=== PATIENT | female | born 1990 | race Two or more races ===

== ENCOUNTER 2017-03-06 00:51 | Emergency (ER) | payer OTHER ==
[~2017-03-06] VITALS: Ht 162.6 cm; Wt 80.0 kg
[2017-03-06] MEDS ORDERED: METAL LOCK LOOP XX ONE (01:09)
[2017-03-06 01:27] VITALS: BP 148/71
[2017-03-06] MEDS ORDERED: TOPI200T4 PO ×2 (01:41→15:31)
[2017-03-06] MEDS ORDERED: WELLTAB38 PO (01:41)
[2017-03-06] MEDS ORDERED: AMBI5TAB PO (01:41)
[2017-03-06] MEDS ORDERED: NAPR500T PO (18:28)
[2017-03-06] MEDS ORDERED: ZOFR4TAB3 PO (18:53)
== END 2017-03-06 03:12 | disposition left against medical advice (07) ==
LOC: M ED 01:47
DX: R10.9 Unspecified abdominal pain (principal); Z53.21 Procedure and treatment not carried out due to patient leaving prior to being seen by health care provider

== ENCOUNTER 2017-03-06 15:17 | Emergency (ER) | payer OTHER ==
[~2017-03-06] VITALS: Ht 162.6 cm; Wt 79.8 kg
[~2017-03-06 15:17] MED LIST: AMBI5TAB PO; TOPI200T7 PO; WELLTAB38 PO
[2017-03-06] MEDS ORDERED: TOPI200T7 PO (15:31)
[2017-03-06] MEDS ORDERED: KETOROLAC 30 MG/ML VIAL (J1885) IV ONE (16:45)
[2017-03-06 17:09] LABS: BASO % 0.2 % (0.0-1.0); EOS # 0.2 K/mm3 (0.0-0.50); EOS % 1.8 % (0.0-3.0); LARGE UNSTAINED CELL # 0.1 K/mm3 (0.0-0.4); LARGE UNSTAINED CELL % 1.2 % (0.0-4.0); LYMPH # 2.2 K/mm3 (1.5-6.5); LYMPH % 23.1 % (24.0-44.0); MEAN CORPUSCULAR HEMOGLOBIN 26.8 pg (27.0-33.0); MEAN CORPUSCULAR HGB CONC 31.7 g/dl (32.0-36.5); MEAN CORPUSCULAR VOLUME 84.5 fl (80.0-96.0); MONO # 0.4 K/mm3 (0.0-0.8); MONO % 4.5 % (0.0-5.0); NEUTROPHILS # 6.7 K/mm3 (1.8-7.7); NEUTROPHILS % 69.2 % (36.0-66.0); PLATELET COUNT, AUTOMATED 263 k/mm3 (150-450); RED CELL DISTRIBUTION WIDTH 15.2 % (11.5-14.5); WHITE BLOOD COUNT 9.7 K/mm3 (4.0-10.0)
[2017-03-06 17:27] LABS: CONTROL LINE UCG INT CTR LINE PRESENT
[2017-03-06 17:28] LABS: ALBUMIN 3.8 GM/DL (3.2-5.2); ALBUMIN/GLOBULIN RATIO 1.12 (1.00-1.93); ALKALINE PHOSPHATASE 63 U/L (45-117); ALT/SGPT 35 U/L (12-78); AMYLASE 59 U/L (25-115); ANION GAP 6 MEQ/L (8-16); AST/SGOT 18 U/L (15-37); BILIRUBIN,DIRECT < 0.1 MG/DL (0.0-0.2); BILIRUBIN,TOTAL 0.4 MG/DL (0.2-1.0); BLOOD UREA NITROGEN 12 MG/DL (7-18); CALCIUM LEVEL 8.8 MG/DL (8.5-10.1); CARBON DIOXIDE LEVEL 22 MEQ/L (21-32); CHLORIDE LEVEL 109 MEQ/L (98-107); CREATININE FOR GFR 0.88 MG/DL (0.55-1.02); GLOMERULAR FILTRATION RATE > 60.0 (>60); GLUCOSE, FASTING 90 MG/DL (70-105); POTASSIUM SERUM 3.7 MEQ/L (3.5-5.1); SODIUM LEVEL 137 MEQ/L (136-145); TOTAL PROTEIN 7.2 GM/DL (6.4-8.2)
[2017-03-06] MEDS ORDERED: NAPR500T PO (18:28)
--- NOTE | 2017-03-06 18:28 | REP ---
Pelvic sonography: History: Right pelvic pain. Findings: Transabdominal and transvaginal scanning are performed. Uterine dimensions are normal at 7.0 x 3.7 x 4.8 cm. Endometrial echo 0.8 cm thick. The uterus is mildly heterogeneous. No focal uterine mass is seen. There is a trace of fluid in the cul-de-sac. Visualized bladder medina are smooth. The right ovary measures 3.4 x 3.8 x 3.4 cm. It contains a 2.1 cm hypoechoic area which may be a hemorrhagic cyst. The left ovary measures 2.8 x 2.9 x 2.9 cm. It contains a 1.7 by 2.4 cm hypoechoic area, which may be a hemorrhagic cyst or conceivably a small dermoid. No other abnormality. Impression: There is a small hypoechoic cystic area in each ovary 2.1 cm on the right and 2.4 cm in greatest diameter on the left. Possible hemorrhagic cyst versus small dermoid. Otherwise, unremarkable. Normal Doppler flow is seen in each ovary. Signed by Nghia Vanegas MD 03/06/2017 07:00 P
[2017-03-06 18:50] VITALS: BP 114/75
[2017-03-06] MEDS ORDERED: ZOFR4TAB3 PO (18:53)
== END 2017-03-06 18:53 | disposition home or self-care (01) ==
LOC: M ED 16:22
DX: R10.2 Pelvic and perineal pain (principal); N83.201 Unspecified ovarian cyst, right side; N83.202 Unspecified ovarian cyst, left side; N93.9 Abnormal uterine and vaginal bleeding, unspecified; R51 Headache; F99 Mental disorder, not otherwise specified; Z79.899 Other long term (current) drug therapy
CPT/HCPCS: 76830; 76856; 80048; 80076; 81001; 82150; 83690; 84703; 85025; 93976; 96374; 99283; J1885

== ENCOUNTER → 2017-07-27 | Outpatient (CLI) | payer OTHER ==
[~2017-07-27] MED LIST changes: +NAPR500T PO; +ZOFR4TAB3 PO
--- NOTE | 2017-07-27 13:38 | REP ---
RIGHT HAND COMPLETE: 07/27/2017. CLINICAL HISTORY: Trauma about 1 month ago, pain. FINDINGS: No prior study. Distal radius and ulna intact. Carpal bones and their joint spaces are preserved. There is no subluxation, dislocation or fracture of the carpals. Metacarpals and phalanges show no fracture or healing fracture. The MCP and IP joints are preserved. There is no erosion, subluxation or focal lesion. No foreign body. IMPRESSION: 1. Negative right hand series for fracture, subluxation, focal bone lesion or other acute finding. Signed by Sukhjinder Polo MD 07/27/2017 02:30 P
== END ==
LOC: M LRY 12:09
PROVIDERS: ATTEND Physician Assistant
DX: M79.641 Pain in right hand (principal)
CPT/HCPCS: 73130; G0463

== ENCOUNTER → 2017-12-09 | Outpatient (CLI) | payer OTHER | LOC: M LRY 18:21 | DX: R00.2 Palpitations (principal) | CPT/HCPCS: 81002 ==

== ENCOUNTER → 2018-04-03 | Outpatient (REF) | payer OTHER ==
[2018-04-04 20:59] LABS: CHLAMYDIA DNA AMPLIFICATION NEGATIVE (NEGATIVE); GC DNA AMPLIFICATION NEGATIVE (NEGATIVE)
== END ==
LOC: M SFHCLERA 17:28
DX: R30.0 Dysuria (principal)

== ENCOUNTER → 2018-04-23 | Outpatient (CLI) | payer OTHER | LOC: M LRY 16:35 | DX: M54.5 Low back pain (principal); M25.552 Pain in left hip | CPT/HCPCS: 96372 ==

== ENCOUNTER → 2018-11-16 | Outpatient (CLI) | payer OTHER ==
[~2018-11-16] MED LIST changes: +NAPR-50 PO; -NAPR500T PO; +ZOFR4TAB14 PO; -ZOFR4TAB3 PO
--- NOTE | 2018-11-16 17:39 | REP ---
Clinical: Subacute cough and shortness of breath with chest pain . Comparison: 12/09/2017 . Technique: PA and lateral. Findings: The mediastinum and cardiac silhouette are normal. The lung quñiones are clear and without acute consolidation, effusion, or pneumothorax. The skeletal structures are intact and normal. Impression: 1. No acute cardiopulmonary process. Electronically Signed by Onur Borjas MD 11/16/2018 05:31 P
== END ==
LOC: M LRY 17:19
PROVIDERS: ATTEND Physician Assistant Medical
DX: R05 Cough (principal)

== ENCOUNTER → 2018-12-21 | Outpatient (CLI) | payer OTHER ==
[~2018-12-21] MED LIST changes: +METHACHOLINE KIT (J7674) INH ONE
--- NOTE | 2018-12-21 15:35 | PFTRPT ---
Height: 64.50 Inches Weight: 149.00 Lbs BSA: 1.74 Diagnosis: R05 DATE OF STUDY: 12/21/2018 ORDERED BY: DUTCH Peacock Spirometry: Pre and post bronchodilator study of excellent technical quality. Some difficulty with effort is identified. Forced vital capacity normal. FEV1 in proportion. Obstructive index is, therefore, normal. Flow Volume Loop: Expiratory limb of the flow volume loop is reasonably normal. No significant bronchodilator response is identified. Lung Volumes: Total lung capacity normal. Residual volume borderline for air trapping. Diffusing Capacity: Diffusing capacity normal. Hemoglobin: Hemoglobin acceptable at 13.3. Airway Mechanics: Airway resistance and conductance are normal. IMPRESSION: Probably normal study. MTDD
== END ==
LOC: M CARPUL 13:30
PROVIDERS: ATTEND Nurse Practitioner Adult Health
DX: R05 Cough (principal)

== ENCOUNTER → 2019-01-11 | Outpatient (CLI) | payer OTHER ==
[~2019-01-11] MED LIST changes: -NAPR-50 PO; +NAPR-837 PO
--- NOTE | 2019-01-12 13:33 | PFTRPT ---
Height: 64.50 Inches Weight: 149.00 Lbs BSA: 1.74 Diagnosis: R05 DATE OF PROCEDURE: 01/11/2019 ORDERED BY: Jennifer Jesus INTERPRETATION: Study of excellent technical quality. Under protocol, methacholine was administered. At a dose of 2.5 mg (13.875 CDUs), a 34% decline in the FEV1 was noted. PC of 0.58 is significant. Flow rates did return to baseline post bronchodilator administration. MTDD
== END ==
LOC: M CARPUL 13:35
PROVIDERS: ATTEND Nurse Practitioner Adult Health
DX: R05 Cough (principal)
CPT/HCPCS: 94070; J7674

== ENCOUNTER → 2019-07-12 | Outpatient (CLI) | payer OTHER ==
[~2019-07-12] MED LIST changes: -METHACHOLINE KIT (J7674) INH ONE
--- NOTE | 2019-07-12 16:06 | REP ---
Two-view chest: 07/12/2019. Indication: Cough. Comparison: 11/16/2018. Findings: The lungs are clear. There is no pleural effusion or pneumothorax. The cardiac silhouette is unremarkable. Impression: Clear lungs. Electronically Signed by Zaki Rios DO 07/12/2019 03:57 P
== END ==
LOC: M SMT 14:37
PROVIDERS: ATTEND Nurse Practitioner Adult Health
DX: R05 Cough (principal)

== ENCOUNTER → 2019-07-18 | Outpatient (CLI) | payer OTHER ==
[~2019-07-18] MED LIST changes: +ISOVUE-370 76% 100ML VIAL (Q9967) As Ordered ONE
--- NOTE | 2019-07-18 09:14 | REP ---
Clinical: Cough. Technique: Axial contrast enhanced images from the thoracic inlet to the upper abdomen with coronal and sagittal re-formations using 100 ml Isovue 70 intravenous contrast material. Comparison: Chest x-ray dated 07/12/2019. Findings: The bilateral lung quiñones are well aerated and clear. No consolidation, nodule or mass. No effusion. No pneumothorax. No adenopathy. Mediastinum including pulmonary vasculature and thoracic aorta is normal. Surrounding musculoskeletal structures are intact. Limited upper abdomen demonstrates normal bilateral adrenal glands. Impression: Normal contrast enhanced chest CT. No acute mediastinal or pleuroparenchymal process. Electronically Signed by Onur Borjas MD 07/18/2019 09:06 A
== END ==
LOC: M RAD 08:05
PROVIDERS: ATTEND Nurse Practitioner Adult Health
DX: R05 Cough (principal); R91.8 Other nonspecific abnormal finding of lung field
CPT/HCPCS: 71260; Q9967